=== PATIENT | female | born 1990 | race African-American/Black ===

== ENCOUNTER 2017-02-27 03:00 | Emergency (ER) | payer MEDICAID, OTHER ==
[2017-02-27] MEDS ORDERED: Lorazepam 2 MG/ML VIAL ONE (03:22)
[2017-02-27 03:44] LABS: #Basophils 0.1 thou/uL (0.0-0.2); #Eosinphils 0.7 thou/uL (0.0-0.7); #Lymphocytes 4.4 thou/uL (1.20-3.40); #Monocytes 0.8 thou/uL (0.11-0.59); #Neutrophils 4.9 thou/uL (1.40-6.50); %Basophils 1.3 % (0.0-1.0); %Eosinophils 6.1 % (0.0-10.0); %Lymphocytes 40.6 % (21.0-51.0); %Monocytes 7.5 % (0.0-10.0); %Neutrophils 44.7 % (42.0-75.0); Bilirubin Negative (Negative); Blood, Urine Negative (Negative); Clarity Clear (Clear); Glucose, Urine (Dipstick) Negative (Negative); Hemoglobin 15.1 g/dL (12.0-16.0); Leukocyte Small (Negative); Mean Corpuscular HGB CONC 34.2 g/dL (32.0-36.0); Mean Corpuscular Hemoglobin 32.8 pg (27.0-31.0); Mean Corpuscular Volume 95.8 fl (81.0-99.0); Mean Platelet Volume 10.4 fL (7.4-10.4); Nitrite Negative (Negative); Platelet Count 270 thou/uL (130-400); Protein, Urine (Dipstick) Negative (Neg-Trace); RBC Distribution Width 11.5 % (11.5-14.5); Red Blood Cell (RBC) Count 4.61 mill/uL (4.20-5.40); Specific Gravity, Urine 1.015 (1.005-1.030); White Blood Cell (WBC) Count 10.9 thou/uL (4.8-10.8); pH, Urine 7.5 (5.0-9.0)
[2017-02-27 03:46] LABS: Pregu Control Bar Appear? YES (CONTROL BAR); Specific Gravity 1.015 (1.002-1.036)
[2017-02-27] MEDS ORDERED: Famotidine/PF 20 mg/2ml Vial ONE (03:46)
[2017-02-27 03:47] LABS: Bacteria/HPF 1+ HPF (None Seen); RBC/HPF None Seen HPF (0-3)
[2017-02-27 03:51] LABS: Amphetamine Not Detected (NotDetected); Barbiturates Screen Not Detected (NotDetected); Benzodiazepine Screen Not Detected (NotDetected); Cocaine Metabolite Screen Not Detected (NotDetected); Methadone Not Detected (NotDetected); Methamphetamine Not Detected (NotDetected); Opiate Screen Not Detected (NotDetected); Oxycodone Screen Not Detected (NotDetected); Phencyclidine (PCP) Not Detected (NotDetected); THC/Cannabinoid Screen Not Detected (NotDetected); Tricyclic Screen Not Detected (NotDetected)
[2017-02-27 03:52] LABS: Medtox Control Line Valid? VALID (VALID)
[2017-02-27 04:00] LABS: Anion Gap 16 mmol/L (10-20); BUN (Urea Nitrogen) 8 mg/dL (7.0-18.7); Calc. Creatinine Clearance 0 mL/min (70-130); Calcium 9.6 mg/dL (7.8-10.44); Carbon Dioxide 23 mmol/L (22-29); Chloride 103 mmol/L (98-107); Estimated GFR-MDRD Greater than 90; Glucose 95 mg/dL (70-105); Potassium 3.5 mmol/L (3.5-5.1); Sodium 138 mmol/L (136-145)
[2017-02-27 04:03] LABS: CKMB 0.6 ng/mL (0-6.6); Troponin I Less than 0.010 ng/mL (< 0.028)
--- NOTE | 2017-02-27 08:43 | RAD ---
PORTABLE CHEST: DATE: 02/27/17. PROVIDED CLINICAL HISTORY: Chest pain. FINDINGS: Cardiac and mediastinal silhouette is within normal limits. No focal consolidation, pleural fluid, or pneumothorax apparent. IMPRESSION: No evidence for an acute cardiopulmonary process. POS: [facility]
== END 2017-02-27 04:41 | disposition home or self-care (01) ==
LOC: NAV ERS 03:00
DX: F41.9 Anxiety disorder, unspecified (principal); R07.81 Pleurodynia; D64.9 Anemia, unspecified; I10 Essential (primary) hypertension; Z79.891 Long term (current) use of opiate analgesic; Z79.899 Other long term (current) drug therapy
CPT/HCPCS: 36415; 71010; 80048; 80306; 81003; 81015; 81025; 82553; 83880; 84484; 85025; 93005; 96374; 96375; J2060; J2270; S0028